=== PATIENT | female | born 1985 | race Caucasian/White ===

== ENCOUNTER 2021-08-20 19:41 | Inpatient (IN) ==
[2021-08-20] MEDS ORDERED: OXYTOCIN 30 UNITS/500 ML BAG IV PRN (20:07)
--- NOTE | 2021-08-20 20:11 | Labor Progress Brief Note ---
Date of Service August 20, 2021 Subjective Patient arrives with SIUP @ 39w5d and c/o contractions Q5min and painful. No LOF, VB. Has good FM. Preg uncomplicated other than AMA >35yo. Assessment & Plan (1) Normal labor and delivery: Plan: Admit, COVID test, Epidural on request, reassess after several hours to determine need for augmentation. Physical Exam Constitutional: WD/WN, vitals as above Eyes: PERRL, conjunctivae normal, anicteric sclerae ENMT: external ear and nose normal, oropharynx normal Neck: supple Respiratory: normal respiratory effort and able to speak in complete sentences; no respiratory distress Cardiovascular: Rate/Rhythm: regular rate and regular rhythm Gastrointestinal (Abdomen): Gravid / AGA, nontender Musculoskeletal: no cyanosis or clubbing, extremities motor strength 5/5 Skin: no rashes, warm and dry Neurologic: patellar DTR's 2+ bilat, sensation intact Psychiatric: A+Ox3, euthymic affect Genitourinary: Speculum/Bimanual Exam: no vaginal lesions, no vaginal bleeding and uterus nontender OB Exam Abdomen: + vertex, + estimated weight (7) and + regular contractions (Q3) Manual OB Exam: + cervical dilation 4 cm, + cervical effacement 80%, + station -1 and + amniotic fluid (No leaking evident) OB Exam Monitor Tracing: + external FHT monitor used, + external uterine monitor used and + category I Lymphatic: no cervical or axillary lymphadenopathy Results & Data ([facility]) Vital Signs (Past 12 Hours) Vital Signs Pulse BP 08/20/21 20:07 86 146/89 H Coding Level of Care Code None Diagnoses Normal labor and delivery O80
[2021-08-20 20:28] LABS: Hematocrit (blood only) 34.2 % (37-47); Hemoglobin 11.4 g/dL (12.0-16.0); Mean Corpuscular Hemoglobin 31.4 pg (25-34); Mean Corpuscular Hgb Conc 33.3 g/dL (32-36); Mean Corpuscular Volume 94.2 fL (80-100); Mean Platelet Volume 11.4 fL (7.4-10.4); Platelet Count 233 K/uL (130-400); RDW Coefficient of Variation 13.6 % (11.5-14.5); RDW Standard Deviation 47.1 fL (36.4-46.3); Red Blood Count 3.63 M/uL (4.2-5.4); White Blood Count 10.17 K/uL (4.8-10.8)
[2021-08-20] MEDS: LACTATED RINGER'S 1,000 ML IV PRN ×2 (21:51→23:02)
[2021-08-20] MEDS ORDERED: ePHEDrine sulfate 50 MG/ML AMP ONE (22:12)
[2021-08-20] MEDS ORDERED: SODIUM CHLORIDE 0.9% INJ 10 ML VIAL ONE (22:12)
[2021-08-20] MEDS ORDERED: fentaNYL 2MCG/ML ROPIVACAINE 1.25MG/ML 100 ML BAG EPI ONE (22:13)
[2021-08-20] MEDS ORDERED: fentaNYL citrate 100 MCG/2 ML VIAL ONE (22:13)
[2021-08-20] MEDS ORDERED: BUPIVACAINE 0.25% 30 ML VIAL ONE (22:13)
--- NOTE | 2021-08-20 23:17 | Anesthesiology Consultation ---
Date of Service August 20, 2021 Assessment & Plan Chart Review Chart Review: Acceptable Risk for Labor Epidural Consults Requested none History Height/Weight Height: 5 ft 2 in Weight: 77.467 kg Allergies Allergy/AdvReac Type Severity Reaction Status Date / Time No Known Allergies Allergy Unknown Verified 08/16/21 14:56 Medications Home Medications Medication Instructions Recorded Confirmed Last Taken prenat.vits,yamilet,cuw-dtll-hfugx 1 tab PO DAILY 12/31/20 08/20/21 08/19/21 docusate sodium 100 mg capsule 100 mg PO DAILY 07/23/21 08/20/21 08/19/21 (Colace) Active Medications Generic Name Dose Route Start Last Admin Trade Name Freq PRN Reason Stop Dose Admin Lactated Ringer's 1,000 mls @ 125 mls/hr 08/20/21 20:07 08/20/21 23:02 Lr IV 08/22/21 20:06 125 mls/hr .Q8H PRN Administration L&D Protocol Protocol Past Family History Family History (Updated 12/31/20 @ 10:02 by Marina Nicole) Father Colorectal cancer Lung cancer Mother Cancer skin cancer Grandmother (Maternal) Diabetes Past Surgical History Surgical History (Updated 12/31/20 @ 10:01 by Marina Nicole) H/O breast augmentation Spring teeth extracted Social History Smoking Status: Never smoker Hx Alcohol Use: No Hx Substance Use: No Physical Exam Vital Signs Last Vital Signs Temp 36.8 C 08/20/21 23:05 Pulse 88 08/20/21 23:16 Resp 16 08/20/21 23:05 BP 153/94 H 08/20/21 23:14 Pulse Ox 96 08/20/21 23:16 Testing Laboratory Results 08/20/21 20:20
[2021-08-20] MEDS ORDERED: fentaNYL 2MCG/ML ROPIVACAINE 1.25MG/ML 100 ML BAG EPI PRN (23:23)
[2021-08-20] MEDS ORDERED: ePHEDrine sulfate 50 MG/ML AMP IV PRN (23:23)
[2021-08-20] MEDS ORDERED: diphenhydrAMINE 50 MG/ML VIAL IV PRN (23:23)
[2021-08-20] MEDS ORDERED: NALBUPHINE HCL INJ 10 MG/ML AMP IV PRN (23:23)
[2021-08-20] MEDS ORDERED: NALOXONE HCL 1 MG in SODIUM CHLORIDE 0.9% 1000ML 1,000 ML IV PRN (23:23)
[2021-08-20] MEDS ORDERED: NALOXONE HCL 0.4 MG/1 ML VIAL/CARP IV PRN (23:23)
[2021-08-21] MEDS ORDERED: Nursing to Pharmacy Communication SCH (00:30)
[2021-08-21] MEDS ORDERED: NURSING L&D Epidural Breakthrough Pain Update ONE (01:05)
[2021-08-21] MEDS: LACTATED RINGER'S 1,000 ML IV PRN (05:19)
--- NOTE | 2021-08-21 07:05 | Labor Progress Brief Note ---
Date of Service August 21, 2021 Subjective Patient seen at 06:20, comfortable with epidural and beginning second stage. Assessment & Plan (1) Normal labor and delivery: Admission and Anticipated Discharge Date Admission Date: August 20, 2021 Physical Exam Genitourinary: 10100/+1 and pushing effectively, FHT approp for 2nd stage. [place] Q2-5 Results & Data ([facility]) Vital Signs (Past 12 Hours) Vital Signs Temp Pulse Resp BP Pulse Ox Pulse Ox 08/21/21 07:02 93 H 80 L 08/21/21 07:01 95 H 132/81 96 08/21/21 06:56 96 H 97 08/21/21 06:54 86 85 L 08/21/21 06:51 90 97 08/21/21 06:50 98.1 F 16 08/21/21 06:48 97 H 87 L 08/21/21 06:46 89 142/65 H 92 08/21/21 06:41 101 H 82 L 08/21/21 06:36 105 H 77 L 08/21/21 06:32 104 H 84 L 08/21/21 06:31 92 H 135/86 98 08/21/21 06:26 99 H 98 08/21/21 06:25 102 H 89 L 08/21/21 06:21 99 H 97 08/21/21 06:19 91 H 87 L 08/21/21 06:16 89 141/81 H 97 08/21/21 06:15 16 08/21/21 06:14 99 H 80 L 08/21/21 06:11 103 H 98 08/21/21 06:06 98 H 98 08/21/21 06:01 85 99 08/21/21 05:59 98 H 90 08/21/21 05:56 108 H 98 08/21/21 05:51 96 H 90 08/21/21 05:46 88 98 08/21/21 05:45 92 H 136/84 08/21/21 05:41 87 97 08/21/21 05:36 80 95 08/21/21 05:31 84 97 08/21/21 05:30 82 16 127/81 08/21/21 05:26 89 95 08/21/21 05:21 92 H 96 08/21/21 05:16 83 118/69 95 08/21/21 05:11 85 94 08/21/21 05:06 89 95 08/21/21 05:01 79 95 08/21/21 05:00 82 119/69 08/21/21 04:59 80 93 08/21/21 04:56 83 96 08/21/21 04:51 95 H 95 08/21/21 04:47 98.2 F 85 16 121/68 08/21/21 04:46 81 97 08/21/21 04:41 89 97 08/21/21 04:36 104 H 97 08/21/21 04:31 101 H 134/70 97 08/21/21 04:30 16 08/21/21 04:26 89 97 08/21/21 04:21 100 H 99 08/21/21 04:16 93 H 97 08/21/21 04:15 93 H 129/82 87 L 08/21/21 04:11 83 98 08/21/21 04:06 86 97 08/21/21 04:02 78 132/90 08/21/21 04:01 92 H 97 08/21/21 03:56 101 H 98 08/21/21 03:51 87 95 08/21/21 03:49 81 94 08/21/21 03:46 85 127/61 97 08/21/21 03:41 88 97 08/21/21 03:38 80 94 08/21/21 03:36 94 H 98 08/21/21 03:31 86 145/72 H 95 08/21/21 03:26 84 95 08/21/21 03:24 81 94 08/21/21 03:21 75 96 08/21/21 03:18 90 94 08/21/21 03:16 81 96 08/21/21 03:15 80 124/77 08/21/21 03:11 87 97 08/21/21 03:06 83 97 08/21/21 03:03 82 94 08/21/21 03:01 86 130/77 97 08/21/21 02:56 81 94 08/21/21 02:51 83 96 08/21/21 02:46 82 96 08/21/21 02:45 81 125/69 08/21/21 02:41 95 H 98 08/21/21 02:36 87 98 08/21/21 02:31 93 H 117/57 L 96 08/21/21 02:30 90 93 08/21/21 02:26 93 H 97 08/21/21 02:21 92 H 96 08/21/21 02:16 122 H 95 08/21/21 02:11 103 H 98 08/21/21 02:07 98.1 F 18 08/21/21 02:06 87 98 08/21/21 02:01 95 H 137/81 97 08/21/21 01:56 82 97 08/21/21 01:51 90 95 08/21/21 01:49 74 94 08/21/21 01:46 83 97 08/21/21 01:45 80 117/78 08/21/21 01:42 68 94 08/21/21 01:41 77 97 08/21/21 01:36 70 95 08/21/21 01:31 68 137/85 97 08/21/21 01:26 71 96 08/21/21 01:21 75 96 08/21/21 01:16 75 147/84 H 97 08/21/21 01:11 87 98 08/21/21 01:06 73 95 08/21/21 01:01 94 H 98 08/21/21 01:00 78 130/61 08/21/21 00:56 90 97 08/21/21 00:51 77 97 08/21/21 00:46 76 142/66 H 97 08/21/21 00:41 81 96 08/21/21 00:36 90 96 08/21/21 00:32 81 113/62 08/21/21 00:31 83 92 08/21/21 00:26 95 H 98 08/21/21 00:25 98 H 92 08/21/21 00:21 86 96 08/21/21 00:17 85 122/69 08/21/21 00:16 86 97 08/21/21 00:11 87 97 08/21/21 00:06 88 97 08/21/21 00:01 85 122/65 95 08/20/21 23:56 84 97 08/20/21 23:51 87 97 08/20/21 23:47 81 120/67 91 08/20/21 23:46 89 97 08/20/21 23:41 88 97 08/20/21 23:40 83 125/74 08/20/21 23:38 89 126/75 08/20/21 23:36 99 H 97 08/20/21 23:34 86 126/82 08/20/21 23:31 80 137/76 98 08/20/21 23:28 75 133/88 08/20/21 23:26 87 98 08/20/21 23:23 87 131/95 99 08/20/21 23:21 101 H 98 08/20/21 23:19 82 152/70 H 08/20/21 23:16 88 96 08/20/21 23:14 85 153/94 H 08/20/21 23:11 80 97 08/20/21 23:10 77 134/80 08/20/21 23:08 84 127/83 08/20/21 23:06 83 97 08/20/21 23:05 98.2 F 77 16 134/74 08/20/21 23:01 77 144/89 H 98 08/20/21 22:59 80 133/80 08/20/21 22:56 85 98 08/20/21 22:55 83 135/90 08/20/21 22:51 94 H 98 08/20/21 22:46 82 99 08/20/21 22:41 78 99 08/20/21 22:36 81 98 08/20/21 20:10 80 133/88 08/20/21 20:07 86 146/89 H 08/20/21 19:53 98.2 F 16 Coding Level of Care Code None Diagnoses Normal labor and delivery O80
--- NOTE | 2021-08-21 07:31 | Delivery Summary ---
Vaginal Delivery Summary Date of Service August 21, 2021 Vaginal Delivery Summary DIAGNOSES: 1. Sam intrauterine at 39w6d gestation. 2. Spontaneous onset of labor. 3. Group B Streptococcus Neg. PROCEDURE: Spontaneous vaginal delivery and repair of 1st degree posterior vaginal laceration. SURGEON: Charlotte Yousif MD. INTERNAL COMBUSTION ENGINE INSPECTOR: None. ESTIMATED BLOOD LOSS: 250 mL. COMPLICATIONS: None. PLACENTA: Spontaneous and intact with a 3-vessel cord. DISPOSITION: Stable to labor and delivery. DESCRIPTION: The patient pushed well and brought the head to in OA position with some asynclitism. The infant's head was allowed to deliver with contraction force and no further active pushing, with the perineum protected during this time. There was no nuchal cord. The right shoulder was anterior. The shoulders and body delivered without any difficulty, and the infant was placed on the maternal abdomen. It was vigorous and moving all extremities, and making respiratory efforts. The cord was doubly clamped by the MD and then cut by the MD as the FOB declined. The placenta delivered spontaneously and was noted to be intact and with a 3VC. The cervix, vagina and perineum were examined and were found to have intact perineal skin, but a 1st- degree divot in the posterior vaginal wall was sutured with 3-0 vicryl to ensure hemostasis and aid healing. The fundus was firm and lochia minimal immediately after delivery. [facility] Vaginal Delivery Charge Vaginal Delivery Codes: 05093 global code for the antepartum, delivery, and post-
[2021-08-21] MEDS ORDERED: ACETAMINOPHEN 325 MG TAB PO PRN (08:04)
[2021-08-21] MEDS ORDERED: HYDROCORTISONE ACETATE 25 MG SUPP PR PRN (08:04)
[2021-08-21] MEDS ORDERED: BENZOCAINE 20% AER SPR 82.5 GM CAN EXT PRN (08:04)
[2021-08-21] MEDS ORDERED: oxyCODONE/ACETAMINOPHEN 5mg/325mg TAB PO PRN (08:04)
[2021-08-21] MEDS ORDERED: DIPHTHERIA/TETANUS/PERTUSSIS 0.5 ML SYR/VIAL IM ONE (08:04)
--- NOTE | 2021-08-21 08:41 | Anesthesia Procedure Note ---
Date of Service August 21, 2021 Anesthesia Post Epidural Note Vital Signs Vital Signs: Temp Pulse Resp BP Pulse Ox 36.7 C 149 H 16 138/80 90 08/21/21 06:50 08/21/21 07:47 08/21/21 06:50 08/21/21 08:15 08/21/21 07:47 Pain Intensity Bilateral Pelvic: Pain Intensity: 2 Notes Mental Status: alert / awake / arousable and participated in evaluation Nausea / Vomiting: adequately controlled Pain: adequately controlled Airway Patency, RR, SpO2: stable & adequate BP & HR: stable & adequate Hydration State: stable & adequate Neuraxial Anesthesia: was administered and sensory block is resolving Anesthetic Complications: no major complications apparent and Pt Satisfied with anesthetic care Epidural: Removed without complications and With tip intact
[2021-08-21] MEDS: PRENATAL VITAMIN 1 TAB PO SCH (09:19)
[2021-08-21] MEDS: DOCUSATE SODIUM 100 MG CAP PO SCH ×2 (09:19→19:57)
[2021-08-21] MEDS: IBUPROFEN 600 MG TAB PO PRN ×2 (15:26→19:57)
[2021-08-22] MEDS: IBUPROFEN 600 MG TAB PO PRN ×4 (04:20→23:20)
[2021-08-22 06:43] LABS: Hematocrit (blood only) 29.7 % (37-47); Hemoglobin 10.1 g/dL (12.0-16.0); Mean Corpuscular Hemoglobin 31.9 pg (25-34); Mean Corpuscular Volume 93.7 fL (80-100); Mean Platelet Volume 11.2 fL (7.4-10.4); Platelet Count 197 K/uL (130-400); RDW Coefficient of Variation 13.9 % (11.5-14.5); RDW Standard Deviation 47.3 fL (36.4-46.3); Red Blood Count 3.17 M/uL (4.2-5.4)
[2021-08-22] MEDS ORDERED: FAMOTIDINE 20 MG TAB PO PRN (08:21)
--- NOTE | 2021-08-22 08:21 | Obstetrical Progress Note ---
Date of Service August 22, 2021 Assessment & Plan (1) Normal labor and delivery: PPD#1 doing well, anticipate DC home tomorrow. . Would like Pepcid - as she takes this at home instead of TUMS. Subjective Ambulation: ambulating normally Voiding: no voiding problems Diet Tolerance:: regular diet Lochia:: Moderate Review of Systems All systems reviewed & are unremarkable except as noted in HPI & below Physical Exam Constitutional WD/WN, vitals as above no acute distress Respiratory normal respiratory effort Cardiovascular Rate/Rhythm: regular rate and regular rhythm Gastrointestinal (Abdomen) Inspection/Auscultation: abdomen normal to inspection; abdomen not distended Percussion/Palpation: abdomen soft Genitourinary OB Exam Abdomen: + fundal height Fundus: + firm; not tender Results & Data ([facility]) Vital Signs (Past 12 Hours) Vital Signs Temp Pulse Resp BP Pulse Ox 08/22/21 04:10 36.3 C L 81 16 132/82 98 08/21/21 23:03 36.6 C 82 16 116/77 98 08/21/21 19:40 36.5 C 87 16 124/79 98
[2021-08-22] MEDS: PRENATAL VITAMIN 1 TAB PO SCH (08:46)
[2021-08-22] MEDS: DOCUSATE SODIUM 100 MG CAP PO SCH ×2 (08:47→21:56)
[2021-08-23] MEDS: IBUPROFEN 600 MG TAB PO PRN (06:14)
[2021-08-23 06:15] LABS: Hemoglobin 9.7 g/dL (12.0-16.0)
--- NOTE | 2021-08-23 07:28 | Obstetrical Progress Note ---
Date of Service August 23, 2021 Assessment & Plan (1) Supervision of elderly primigravida: PPD#2 doing well. DC home today. Reviewed instructions. Followup 6w pp. Subjective Ambulation: ambulating normally Voiding: no voiding problems Diet Tolerance:: regular diet Lochia:: Moderate Review of Systems All systems reviewed & are unremarkable except as noted in HPI & below Physical Exam Constitutional WD/WN, vitals as above no acute distress Respiratory normal respiratory effort Cardiovascular Rate/Rhythm: regular rate and regular rhythm Gastrointestinal (Abdomen) Inspection/Auscultation: abdomen normal to inspection; abdomen not distended Percussion/Palpation: abdomen soft Genitourinary OB Exam Abdomen: + fundal height Fundus: + firm; not tender Results & Data ([facility]) Vital Signs (Past 12 Hours) Vital Signs Temp Pulse Resp BP BP Pulse Ox 08/22/21 22:52 36.5 C 77 14 124/81 97 08/22/21 19:50 36.5 C 88 16 122/79 99
[2021-08-23] MEDS: DOCUSATE SODIUM 100 MG CAP PO SCH (08:42)
[2021-08-23] MEDS: PRENATAL VITAMIN 1 TAB PO SCH (08:42)
== END 2021-08-23 11:20 | disposition home or self-care (01) | DRG 807 ==
LOC: OPB 19:41 → 4S1 19:42 → 4S2 08-21 10:47
DX: Z37.0 Single live birth; O71.4 Obstetric high vaginal laceration alone; Z3A.39 39 weeks gestation of pregnancy